=== PATIENT | female | born 1985 | race African-American/Black ===

== ENCOUNTER 2016-11-15 17:47 | Emergency (ER) | payer OTHER ==
[2016-11-15 17:56] VITALS: BP 144/83; PULSE 107; TEMP 98.8; BMI 39.4
--- NOTE | 2016-11-15 17:56 | PDOC ---
Rapid Medical Evaluation Time Seen by Provider: 11/15/16 17:52 Medical Evaluation: Allergies Allergy/AdvReac Type Severity Reaction Status Date / Time Penicillins Allergy Verified 12/16/15 18:58 11/15/16 17:53 I have performed a brief in-person evaluation of this patient. The patient presents with chief complaint: exposed to black mold now coughing and has rash Pertinent physical exam findings: VS stable Lugs CTA b/l I have ordered the following: none The patient will proceed to fast track for further evaluation
[2016-11-15] MEDS ORDERED: ALBUTEROL SO4 0.083% IH SOL 2.5 MG/3 ML VIAL.NEB. NEB ONE ×2 (19:03)
--- NOTE | 2016-11-15 19:15 | PDOC ---
History of Present Illness - General Chief Complaint: Respiratory Stated Complaint: RESPIRATORY Time Seen by Provider: 11/15/16 17:52 History Source: Patient Exam Limitations: Language Barrier - History of Present Illness Initial Comments: 11/15/16 19:09 CC cough and feeling wheezing post exposure to toxic fumes/ raw sewage in apt complex; feeling better post albuterol this am Timing/Duration: reports: yesterday Severity: reports: moderate Possible Cause: Yes: irritant gases exposure Associated Symptoms: reports: cough, nasal congestion, sore throat, wheezing. denies: denies symptoms, fever/chills, lightheadedness, nasal drainage Past History - Past Medical History Allergies/Adverse Reactions: Allergies Allergy/AdvReac Type Severity Reaction Status Date / Time Penicillins Allergy Verified 11/15/16 17:54 Home Medications: Ambulatory Orders Albuterol Sulfate Inhaler - [Ventolin HFA Inhaler -] 2 inh PO Q4H #1 inh Azithromycin [Zithromax 250mg Tablets -] 250 mg PO DAILY #4 tab 12/16/15 HTN: Yes - Psycho/Social/Smoking Cessation Hx Anxiety: No Suicidal Ideation: No Smoking History: Never smoked Have you smoked in the past 12 months: No Number of Cigarettes Smoked Daily: 4 Information on smoking cessation initiated: No Hx Alcohol Use: No Drug/Substance Use Hx: No Substance Use Type: None Review of Systems - Review of Systems Constitutional: No: Chills, Fever, Malaise HEENTM: Yes: Nose Pain, Nose Congestion Respiratory: Yes: Cough, Wheezing. No: SOB with Exertion, Hemoptysis Cardiac (ROS): No: Symptoms Reported ABD/GI: No: Symptoms Reported *Physical Exam - Vital Signs Last Vital Signs Temp Pulse Resp BP Pulse Ox 98.8 F 107 H 20 144/83 97 11/15/16 17:54 11/15/16 17:54 11/15/16 17:54 11/15/16 17:54 11/15/16 17:54 - Physical Exam General Appearance: Yes: Appropriately Dressed. No: Apparent Distress HEENT: positive: TMs Normal, Pharynx Normal Neck: positive: Supple, Lymphadenopathy (R), Lymphadenopathy (L). negative: Tender, Rigid Respiratory/Chest: positive: Normal Breath Sounds, Wheezing (scattered). negative: Chest Tender, Lungs Clear, Accessory Muscle Use, Labored Respiration, Rales, Rhonchi, Stridor Cardiovascular: positive: Regular Rhythm, Regular Rate. negative: Murmur ED Treatment Course - Medications Given in the ED: ED Medications Discontinued Medications Generic Name Dose Route Start Last Admin Trade Name Nestorq PRN Reason Stop Dose Admin Albuterol Sulfate 1 amp 11/15/16 19:03 11/15/16 19:05 Ventolin 0.083% Nebulizer Soln - NEB 11/15/16 19:04 1 amp ONCE ONE Administration Medical Decision Making - Medical Decision Making 11/15/16 19:13 slight scttered wheezing; gave 1 albuterol in ED, better; will sent home with MDI *DC/Admit/Observation/Transfer Diagnosis at time of Disposition: Bronchospasm, Exposure to toxic substance - Discharge Dispostion Disposition: HOME Condition at time of disposition: Stable Admit: No - Patient Instructions Additional Instructions: please avoid toxic fumes; use albuterol as needed; return for increased symptoms - Post Discharge Activity Work/School Note: Back to Work
== END 2016-11-15 19:19 | disposition home or self-care (01) ==
LOC: JERFT 17:47
PROC: 3E0337Z Introduction of Electrolytic and Water Balance Substance into Peripheral Vein, Percutaneous Approach (ICD-10-PCS; principal; 2016-11-15)
DX: J98.01 Acute bronchospasm (principal); Z77.128 Contact with and (suspected) exposure to other hazards in the physical environment; X58.XXXA Exposure to other specified factors, initial encounter; Y93.9 Activity, unspecified; Y92.89 Other specified places as the place of occurrence of the external cause
CPT/HCPCS: 99281-25

== ENCOUNTER 2022-02-07 14:39 | Emergency (ER) | payer OTHER ==
[2022-02-07 14:59] VITALS: TEMP 98.6; BMI 42.5
[2022-02-07] MEDS ORDERED: amLODIPine BESYLATE 10 MG TABLET (FP) PO ONE (16:47)
[2022-02-07] MEDS ORDERED: amLODIPine BESYLATE 10 MG TABLET (FP) ONE (17:05)
[2022-02-07 17:45] VITALS: BP 196/125; PULSE 81
== END 2022-02-07 18:05 | disposition home or self-care (01) ==
LOC: JER 14:39
DX: I10 Essential (primary) hypertension (principal)
CPT/HCPCS: 93005; 93010; 99283-25